=== PATIENT | male | born 1945 | race Caucasian/White ===

== ENCOUNTER 2019-04-29 05:32 | Observation (INO) | payer MEDICARE, OTHER ==
[2019-04-28 11:18] VITALS: BMI 32.3
[2019-04-29] MEDS ORDERED: Heparin (Artline) 1,500 ML ONE (07:17)
[2019-04-29] MEDS ORDERED: Heparin 10,000 UNITS/1 ML VIAL ONE ×2 (07:17→09:47)
[2019-04-29 07:31] LABS: #Basophils 0.1 thou/uL (0.0-0.2); #Eosinphils 0.2 thou/uL (0.0-0.7); #Lymphocytes 1.5 thou/uL (1.20-3.40); #Monocytes 0.7 thou/uL (0.11-0.59); #Neutrophils 4.3 thou/uL (1.40-6.50); %Basophils 0.8 % (0.0-1.0); %Lymphocytes 21.8 % (21.0-51.0); %Monocytes 10.8 % (0.0-10.0); %Neutrophils 63.6 % (42.0-75.0); Hemoglobin 14.6 g/dL (14.0-18.0); Mean Corpuscular HGB CONC 33.3 g/dL (32.0-36.0); Mean Corpuscular Hemoglobin 29.2 pg (27.0-31.0); Mean Corpuscular Volume 87.6 fL (78.0-98.0); Mean Platelet Volume 9.2 fL (7.4-10.4); Platelet Count 480 thou/uL (130-400); RBC Distribution Width 16.7 % (11.5-14.5); Red Blood Cell (RBC) Count 4.99 mill/uL (4.70-6.10); White Blood Cell (WBC) Count 6.8 thou/uL (4.8-10.8)
[2019-04-29 07:41] LABS: INR-International Normal Ratio 1.4; PTT 38.8 SEC (22.9-36.1); Prothrombin Time 17.2 SEC (12.0-14.7)
[2019-04-29] MEDS ORDERED: Fentanyl 100 MCG/2 ML VIAL ONE (07:51)
[2019-04-29 07:54] LABS: Anion Gap 13 mmol/L (10-20); BUN (Urea Nitrogen) 19 mg/dL (8.4-25.7); Calc. Creatinine Clearance 71 mL/min (70-130); Calcium 9.4 mg/dL (7.8-10.44); Carbon Dioxide 28 mmol/L (23-31); Chloride 106 mmol/L (98-107); Estimated GFR-MDRD 53; Glucose 113 mg/dL (83-110); Potassium 3.8 mmol/L (3.5-5.1); Sodium 143 mmol/L (136-145)
[2019-04-29] MEDS ORDERED: Heparin 25,000 units/D5W 500 ML ONE (08:59)
[2019-04-29] MEDS ORDERED: Isoproterenol 0.2 MG/1 ML AMP ONE (08:59)
[2019-04-29] MEDS ORDERED: Protamine Sulfate 50 MG/5 ML VIAL ONE (11:06)
[2019-04-29] MEDS ORDERED: Furosemide 40 MG TAB PO PRN (11:42)
[2019-04-29] MEDS ORDERED: Zolpidem Tartrate 5 MG TAB PO PRN (11:43)
[2019-04-29] MEDS ORDERED: Glycopyrrolate 0.2 MG/ML 5 ML SYRINGE ONE (12:51)
[2019-04-29] MEDS ORDERED: Succinylcholine Chloride 20 MG/ML 10 ml SYRINGE FS ONE (12:51)
[2019-04-29] MEDS ORDERED: Lidocaine 1% PF 5 ML VIAL ONE (12:51)
[2019-04-29] MEDS ORDERED: Rocuronium Bromide 10 MG/ML (10ML VIAL) ONE (12:51)
[2019-04-29] MEDS ORDERED: Dexamethasone 20 MG/5 ML VIAL ONE (12:51)
[2019-04-29] MEDS ORDERED: Ondansetron PF 4 MG/2 ML Vial ONE (12:51)
[2019-04-29] MEDS ORDERED: PROPOFOL 200 MG/20 ML VIAL ONE (12:51)
--- NOTE | 2019-04-29 15:45 | OP ---
DATE OF PROCEDURE: 04/29/2019 PROCEDURES PERFORMED: 1. Electrophysiology study. 2. Radiofrequency ablation. REASON FOR PROCEDURE: Mr. Day is a 74-year-old man with history of advanced heart failure related to an episode of atrial fibrillation/flutter, requiring amiodarone suppression. He is off amiodarone. He is here for EP study and ablation procedure to prevent further recurrences. The patient is doing well, anticoagulated with Xarelto. DESCRIPTION OF PROCEDURE: The patient received general anesthesia with propofol sedation by an anesthesia specialist. The left and right femoral vein was prepped, draped, and anesthetized. Under ultrasound guidance, both veins were cannulated x2. On the left side, an 11-Mongolian sheath was used to advance the intracardiac echocardiogram probe to the right atrium, which was used to monitor the transeptal procedure and the pericardial space throughout the procedure after the catheter positioning. Also, on the left side, a PREFACE sheath was used to advance a duo deca catheter into the right atrium and CS position. On the right side, two 8-Mongolian sheaths were introduced initially, through which a ThermoCool SFST catheter was advanced to the right atrium. 3D map of right atrium, His bundle CS positions, and isthmus were obtained. Baseline EP study was performed, demonstrated the following findings. Baseline rhythm was sinus rhythm with RR interval of 1001 milliseconds, DC of 142, QRS of 97, QT of 348. The sinus node recovery time was 1471 with corrected sinus node recovery time is 451 milliseconds, which is borderline. AV Wenckebach cycle length was 290 milliseconds. Retrograde Wenckebach cycle length was 300 milliseconds. Atrial ERP was 600/200 milliseconds. Dual AV node physiology was not present. Concentric retrograde VA conduction was noted. Burst atrial pacing would not induce atrial flutter with cycle lengths about 260 milliseconds, attempt to overdrive pace the isthmus terminated the arrhythmia. Proximal to distal CS activation was noted. Hence the typical appearing atrial flutter, decision was made to perform the cavotricuspid isthmus ablation. During proximal CS pacing, radiofrequency energy was delivered with SFST catheter, prolonging the transisthmus time from the initial 60 milliseconds to up to 160 milliseconds. Transisthmus block was demonstrated by longest transisthmus time adjacent to the ablation line was seen. Following that, Isuprel was administered and the line block did not change. The burst atrial pacing was delivered and we induced atrial fibrillation, which persisted. The decision was made to proceed with a pulmonary venous isolation. The 8-Mongolian short sheaths from the right groin were exchanged to SL1 catheters, which were used to perform a transseptal puncture under intracardiac echo and fluoroscopic monitoring with a help of a powered SPO transseptal needle. IV heparin was administered prior to transseptal puncture and IV heparin drip was also administered and the ACT was regularly checked to keep ACT over 350 throughout the procedure. Through the SL1 sheath, a ThermoCool SFST catheter as well as a 20-pole Lasso catheter were advanced to the left atrium. 3D map of the left atrium was obtained. Standard pulmonary venous isolation procedure of all 4 pulmonary veins were performed. Also, superior and inferior line was placed to achieve posterior wall isolation. Small segment in the inferior section of the posterior wall was difficult to isolate due to the proximity of esophagus. The esophageal temperatures were monitored throughout the procedure with a transesophageal probe to avoid excessive heating. After posterior wall and pulmonary venous isolation achieved, Isuprel was again administered. Also, LV pacing was performed to rule out accessory pathway. The retrograde Wenckebach cycle was 300 milliseconds. Concentric retrograde VA conduction was seen on Isuprel. Any reconnection was re-ablated. At the end of the case, proximal CS pacing proved the patency of the initially paced cavotricuspid isthmus ablation line. At this point, the catheter was withdrawn from the left atrium. Sheaths were exchanged for short sheaths and IV heparin was stopped and reversed with protamine 50 mg. The cardiac silhouette on fluoroscopy did not change and intracardiac echo proved no change in the pericardium, which showed at baseline some thickening, but no effusion. The total of 24 minutes of radiofrequency energy delivered at 40 álvarez. A total of 39 sessions were noted. The femoral venous access sites were closed with Vascade closure device under ultrasound guidance. The patient was extubated in the dental laboratory technician apprentice, left the dental laboratory technician apprentice with improving consciousness. No complications noted. CONCLUSION: 1. Inducible atrial flutter and fibrillation. 2. Successful cavotricuspid isthmus ablation performed, limiting induced with atrial flutter. 3. Four-vein pulmonary venous isolation performed. 4. Posterior wall isolation performed with minimal inferior segments left un-isolated due to esophageal heating. 5. No evidence of accessory pathway or dual AV lonnie physiology present. No inducible additional arrhythmias noted. 6. Borderline sinus lonnie function. 7. Normal His-Purkinje function pre and post case. PLAN: Resume oral anticoagulants and monitor for recurrent arrhythmias. Routine postop care. Job ID: [id number] MTDD
[2019-04-29] MEDS ORDERED: Acetaminophen 500 MG TAB PO PRN (16:45)
[2019-04-29] MEDS ORDERED: Rivaroxaban 10 MG TAB PO SCH (18:00)
[2019-04-29] MEDS ORDERED: Atorvastatin Calcium 40 MG TAB PO SCH (21:00)
[2019-04-29] MEDS ORDERED: Ibuprofen 200 MG TAB PO SCH (21:00)
[2019-04-29] MEDS ORDERED: Gabapentin 300 MG CAP PO SCH ×2 (21:00→22:00)
[2019-04-30] MEDS ORDERED: Potassium Chloride 20 MEQ TAB PO SCH (08:00)
[2019-04-30 08:57] VITALS: BP 113/55; TEMP 97.6
[2019-04-30] MEDS ORDERED: Gabapentin 300 MG CAP PO SCH ×2 (09:00→21:00)
[2019-04-30] MEDS ORDERED: Sucralfate 1 GM TAB PO SCH (17:00)
--- NOTE | 2019-05-01 04:38 | DIS ---
DATE OF ADMISSION: 04/29/2019 DATE OF DISCHARGE: 04/30/2019 DIAGNOSES: Atrial fibrillation. PROCEDURES PERFORMED: Include electrophysiology study with radiofrequency ablation. Total ablation time was 24 minutes. CONCLUSION: Inducible atrial flutter and fibrillation, status post successful CTI ablation as well as 4-vein pulmonary venous isolation procedure, posterior wall isolation, borderline sinus lonnie function, no accessory pathway, no dual AV lonnie physiology, normal His-Purkinje function pre and post case. PLAN AND RECOMMENDATIONS POST ABLATION: Resume oral anticoagulation. Monitor for recurrent arrhythmias. COMPLICATIONS: None. ESTIMATED BLOOD LOSS: Less than 10 mL. HISTORY OF PRESENT ILLNESS: Mr. Day is a 74-year-old gentleman with history of advanced heart failure related to an episode of atrial fibrillation and flutter, tachycardia mediated. He initially required amiodarone for suppression. Amiodarone has since been stopped and it was decided to take him to the EP lab for study and ablation which was performed on 04/29/[address] Garcia as detailed above. The patient is doing well. He is anticoagulated with Xarelto. He has not had any bleeding complications and is in stable condition this morning, eager to discharge. SUBJECTIVE: The patient denies any heart-racing palpitations, chest pain, pressure, syncope, near syncope, stroke, or stroke-like symptoms, bleeding at groin sites, or shortness of breath. OBJECTIVE: VITAL SIGNS: Prior to discharge, temperature 97.6, blood pressure 113/55, respirations 16, oxygen is 93% on room air. GENERAL: The patient is alert and oriented. Speech is clear. Affect is appropriate. LUNGS: Clear to auscultation. HEART: Irregularly irregular with a crisp S1, S2. PMI is nondisplaced. ABDOMEN: Soft and nontender without palpable masses. EXTREMITIES: Warm and dry to touch. Well perfused without clubbing, cyanosis, or edema. Bilateral groin sites are stable without hematoma or suggestion of internal bleeding. Telemetry and EKG shows sinus rhythm. No recurrent atrial arrhythmias thus far. DISCHARGE MEDICATIONS: Resuming home medications of gabapentin, Xarelto 20 mg q.p.m., atorvastatin, and furosemide q.p.m. New prescriptions sent include sucralfate 1 g p.o. a.c. and at bedtime x2 weeks, Protonix 40 mg daily x1 month, Lasix 40 mg p.o. p.r.n. shortness of breath or swelling of the extremities, to be taken with potassium chloride 20 mEq. DISCHARGE INSTRUCTIONS: 1. No soaking baths or lifting greater than 10 pounds for 7 days. 2. No driving for 48 hours. 3. Contact [facility] for any postablation questions. 4. Refer to discharge postablation education packet. 5. Follow up in 6 weeks or sooner if symptoms dictate. 6. Continue taking oral anticoagulation without any interruption. CONDITION AT DISCHARGE: Stable. Job ID: [id number]
== END 2019-04-30 11:37 | disposition home or self-care (01) ==
LOC: CCL 05:32 → 2SW 11:46 → ERHOLD 14:20 → UNDOADMOB 14:20 → 2SW 17:22
PROVIDERS: ADMIT Internal Medicine Cardiovascular Disease; ATTEND Internal Medicine Cardiovascular Disease
PROC: 02583ZZ Destruction of Conduction Mechanism, Percutaneous Approach (ICD-10-PCS; principal; 2019-04-29)
DX: I48.91 Unspecified atrial fibrillation (principal); I48.92 Unspecified atrial flutter
CPT/HCPCS: 76942; 80048; 85025; 85347 ×2; 85610; 85730; 93005; 93613; 93622; 93623; 93655; 93656; 93662; C1731; C1732 ×3; C1759; C1769; G0378 ×2; 93010; J1100; J1644; J2001; J2405; J2704; J2720; J3010

== ENCOUNTER 2021-06-21 10:27 | Outpatient (CLI) | payer MEDICARE, OTHER ==
[2021-06-21 23:01] LABS: SARS-CoV-2 PCR by NAA Not Detected (NotDetected)
== END 2021-06-21 10:28 | disposition home or self-care (01) ==
LOC: LABBT 10:27
PROVIDERS: ATTEND Internal Medicine Hematology & Oncology
DX: Z01.812 Encounter for preprocedural laboratory examination (principal); D72.828 Other elevated white blood cell count; D63.8 Anemia in other chronic diseases classified elsewhere; Z20.822 Contact with and (suspected) exposure to COVID-19
CPT/HCPCS: U0003; U0005

== ENCOUNTER 2021-06-26 09:57 | Day surgery (SDC) | payer MEDICARE, OTHER ==
[2021-06-22 09:00] VITALS: BMI 29.0
[2021-06-26 09:23] VITALS: TEMP 98
[2021-06-26 09:47] LABS: INR-International Normal Ratio 1.2; Prothrombin Time 15.7 sec (12.0-14.7)
[2021-06-26 09:48] LABS: PTT 43.8 sec (22.9-36.1)
== END 2021-06-26 11:55 | disposition home or self-care (01) ==
LOC: CT 09:57
PROVIDERS: ATTEND Internal Medicine Hematology & Oncology
PROC: 07DR3ZX Extraction of Iliac Bone Marrow, Percutaneous Approach, Diagnostic (ICD-10-PCS; principal; 2021-06-26)
PROC: 079T3ZX Drainage of Bone Marrow, Percutaneous Approach, Diagnostic (ICD-10-PCS; 2021-06-26)
DX: D64.9 Anemia, unspecified (principal); D72.829 Elevated white blood cell count, unspecified; I48.91 Unspecified atrial fibrillation; Z85.46 Personal history of malignant neoplasm of prostate; Z87.891 Personal history of nicotine dependence; Z79.82 Long term (current) use of aspirin; Z79.899 Other long term (current) drug therapy
CPT/HCPCS: 20225; 77012; 85610; 85730; 88184; 88237; 88264; 88280